=== PATIENT | male | born 1990 | race Caucasian/White ===

== ENCOUNTER 2024-10-01 19:05 | Emergency (ER) | payer SELFPAY ==
[~2024-10-01] VITALS: Ht 162.6 cm; Wt 52.2 kg
[~2024-10-01 19:05] MED LIST: AMOXICILLIN250 MG PO
[2024-10-01 19:13] VITALS: TEMP 99
[2024-10-01 19:30] VITALS: PULSE 89; RESP 16
[2024-10-01 19:40] VITALS: BP 129/101; PULSE 89; RESP 16; O2SAT 98
== END 2024-10-01 19:40 | disposition home or self-care (01) ==
LOC: ER 19:14
DX: F12.10 Cannabis abuse, uncomplicated (principal); Z76.5 Malingerer [conscious simulation]; F17.210 Nicotine dependence, cigarettes, uncomplicated
CPT/HCPCS: 99284